=== PATIENT | female | born 1965 | race Caucasian/White ===

== ENCOUNTER 2021-05-17 10:26 | Emergency (ER) | payer BC ==
[~2021-05-17] VITALS: Ht 165.1 cm; Wt 53.6 kg
[~2021-05-17 10:26] MED LIST: ARMOUR THYROID60 MG PO; ATIVAN 0.50.5 MG/TAB PO; FLONASE NASAL S16 GM NS; MOTRIN 600600 MG/TAB PO; SYNTHROID PO; TOPROL XL25 MG PO; ULTRAM50 MG PO
[2021-05-17 10:27] VITALS: TEMP 98.2
[2021-05-17 10:55] LABS: BASO % 0.8 % (0.0-2.0); EOS # 0.2 K/mm3 (0.0-0.7); GRAN # 3.3 K/mm3 (1.4-6.5); HEMATOCRIT 38.4 % (37.0-47.0); LYMPH # 1.2 K/mm3 (1.2-3.4); LYMPH % 22.1 % (20.0-51.0); MEAN CELL VOLUME 91 fl (80.0-100.0); MEAN CORPUSCULAR HEMOGLOBIN 31 pg (27-31); MEAN CORPUSCULAR HGB CONC 34 g/dl (33.0-37.0); MEAN PLATELET VOLUME 9.4 fl (7.4-10.4); MONO # 0.5 K/mm3 (0.1-0.6); MONO % 9.9 % (1.7-9.3); PLATELET COUNT 236 K/mm3 (130-400); RED BLOOD COUNT 4.24 M/mm3 (4.10-5.30); REDCELL DISTRIBUTION WIDTH-CV 12.6 % (11.5-14.5)
[2021-05-17 11:01] LABS: INR 1.1 (0.8-3.0); PROTHROMBIN TIME 12.1 SECONDS (9.7-12.8)
[2021-05-17 11:03] LABS: PARTIAL THROMBOPLASTIN TIME 23.8 SECONDS (26.0-37.0)
[2021-05-17 11:09] LABS: ALBUMIN 3.8 gm/dL (3.5-5.0); BILIRUBIN,TOTAL 0.7 mg/dL (0.2-1.2); CALCIUM 8.7 mg/dL (8.4-10.2); CREATININE, serum 0.73 mg/dL (0.57-1.11); POTASSIUM 3.9 mmol/L (3.5-4.5); TOTAL PROTEIN 6.3 gm/dL (6.2-8.1)
[2021-05-17 11:15] LABS: TROPONIN-I 0.012 ng/mL (0.00-0.033)
[2021-05-17] MEDS ORDERED: PRILOSEC 20MG20 MG PO (13:49)
[2021-05-17] MEDS ORDERED: NITROSTAT0.4 MG/TAB SL (13:54)
[2021-05-17 14:48] VITALS: BP 112/65; PULSE 68
== END 2021-05-17 14:48 | disposition home or self-care (01) ==
LOC: COL.ER 10:26
PROVIDERS: Family Medicine
DX: R07.89 Other chest pain (principal); R94.31 Abnormal electrocardiogram [ECG] [EKG]; Z98.61 Coronary angioplasty status

== ENCOUNTER 2021-10-24 11:04 | Emergency (ER) | payer BC ==
[~2021-10-24] VITALS: Ht 165.1 cm; Wt 53.6 kg
[~2021-10-24 11:04] MED LIST changes: +NITROSTAT0.4 MG/TAB SL; +PRILOSEC 20MG20 MG PO
[2021-10-24 11:35] VITALS: BP 162/79; TEMP 98.3
[2021-10-24 15:30] LABS: BASO # 0.1 K/mm3 (0.0-0.2); BASO % 1.7 % (0.0-2.0); EOS # 0.5 K/mm3 (0.0-0.7); EOS % 7.5 % (0.0-4.0); GRAN # 3.6 K/mm3 (1.4-6.5); HEMATOCRIT 37.1 % (37.0-47.0); LYMPH # 2.1 K/mm3 (1.2-3.4); LYMPH % 30.1 % (20.0-51.0); MEAN CELL VOLUME 89 fl (80.0-100.0); MEAN CORPUSCULAR HEMOGLOBIN 31 pg (27-31); MEAN CORPUSCULAR HGB CONC 35 g/dl (33.0-37.0); MEAN PLATELET VOLUME 8.7 fl (7.4-10.4); MONO # 0.7 K/mm3 (0.1-0.6); MONO % 9.7 % (1.7-9.3); PLATELET COUNT 271 K/mm3 (130-400); RED BLOOD COUNT 4.15 M/mm3 (4.10-5.30); REDCELL DISTRIBUTION WIDTH-CV 12.8 % (11.5-14.5)
[2021-10-24 16:20] VITALS: PULSE 87
== END 2021-10-24 16:20 | disposition home or self-care (01) ==
LOC: COL.ER 11:04
PROVIDERS: Emergency Medicine
DX: M79.644 Pain in right finger(s) (principal); M79.89 Other specified soft tissue disorders; Z88.0 Allergy status to penicillin; Z28.310 Unvaccinated for COVID-19